=== PATIENT | female | born 1945 | race Caucasian/White ===

== ENCOUNTER → 2017-05-23 11:36 | Outpatient (CLI) | payer MEDICARE, OTHER ==
[~2017-05-23 11:36] MED LIST: FLAGYL500 MG PO; PEPCID20 MG PO; PROTONIX40 MG PO
== END | disposition home or self-care (01) ==
LOC: D.LAB 05-22 10:00
DX: R10.9 Unspecified abdominal pain (principal); K83.8 Other specified diseases of biliary tract; K86.9 Disease of pancreas, unspecified

== ENCOUNTER 2017-05-26 12:02 | Day surgery (SDC) | payer MEDICARE, OTHER ==
[2017-05-23 12:20] LABS: ALBUMIN 3.6 g/dL (3.4-5.0); ALKALINE PHOSPHATASE 96 U/L (46-116); ALT (SGPT) 22 U/L (10-68); BILIRUBIN - TOTAL 0.35 mg/dL (0.2-1.3); CALC OSMOLALITY 280 mosm/kg (275-300); CALCIUM 8.6 mg/dL (8.5-10.1); CARBON DIOXIDE 27.9 mmol/L (21.0-32.0); CHLORIDE - SERUM 106 mmol/L (98-107); CREATININE - SERUM 0.7 mg/dL (0.6-1.3); GLUCOSE 81 mg/dL (74-106); LIPASE 118 U/L (73-393); POTASSIUM - SERUM 3.5 mmol/L (3.5-5.1); SODIUM 142 mmol/L (136-145); UREA NITROGEN 10 mg/dL (7-18); eGFR NON AFRICAN AMERICAN 87 mL/min (90-120)
[2017-05-26 12:31] LABS: HEMOGLOBIN 14.1 g/dL (12-16); MCHC 33.6 g/dL (31.0-37.0); MCV 92.3 fL (80.0-100.0); MEAN PLATELET VOLUME 9.7 fL (7.4-10.4); RBC 4.55 10x6/uL (4.00-5.40); RDW 12.6 % (11.5-14.5); WBC 2.1 10x3/uL (4.8-10.8)
[2017-05-26] MEDS ORDERED: PROTONIX40 MG PO (12:40)
[2017-05-26] MEDS ORDERED: FLAGYL500 MG PO (12:40)
[2017-05-26] MEDS ORDERED: PEPCID20 MG PO (12:41)
[2017-05-26 12:50] VITALS: BMI 20.8
[2017-05-26 13:01] LABS: INR 1.07 (0.85-1.17); PROTIME 13.7 SECONDS (11.6-15.0)
--- NOTE | 2017-05-26 16:03 | NUR ---
1515-2 MINUTE 2 SECOND FLUROSCOPY TIME. 18CC CONTRAST USED.
== END 2017-05-26 18:15 | disposition home or self-care (01) ==
LOC: D.OPS 12:02
PROVIDERS: Anesthesiology; Internal Medicine Gastroenterology
DX: R10.32 Left lower quadrant pain (principal); R74.8 Abnormal levels of other serum enzymes; R93.2 Abnormal findings on diagnostic imaging of liver and biliary tract; F17.200 Nicotine dependence, unspecified, uncomplicated; K21.9 Gastro-esophageal reflux disease without esophagitis; K76.0 Fatty (change of) liver, not elsewhere classified; Z01.812 Encounter for preprocedural laboratory examination

== ENCOUNTER → 2017-09-12 11:04 | Outpatient (CLI) | payer MEDICARE, OTHER ==
[2017-09-12 11:39] LABS: ALBUMIN 3.8 g/dL (3.4-5.0); BILIRUBIN - DIRECT 0.07 mg/dL (0.00-0.30); BILIRUBIN - INDIRECT 0.23 mg/dL (0.00-1.00); BILIRUBIN - TOTAL 0.3 mg/dL (0.2-1.3); PROTEIN - SERUM 7.4 g/dL (6.4-8.2)
== END | disposition home or self-care (01) ==
LOC: D.LAB 10:00
PROVIDERS: Internal Medicine Gastroenterology
DX: R79.89 Other specified abnormal findings of blood chemistry (principal)

== ENCOUNTER → 2018-03-12 10:06 | Outpatient (CLI) | payer MEDICARE, OTHER ==
[2018-03-12 11:12] LABS: ALBUMIN 3.7 g/dL (3.4-5.0); BILIRUBIN - INDIRECT 0.26 mg/dL (0.00-1.00); BILIRUBIN - TOTAL 0.31 mg/dL (0.2-1.3); PROTEIN - SERUM 7.7 g/dL (6.4-8.2)
[2018-03-12 11:17] LABS: BILIRUBIN - DIRECT 0.05 mg/dL (0.00-0.30)
== END | disposition home or self-care (01) ==
LOC: D.LAB 10:06
PROVIDERS: Internal Medicine Gastroenterology
DX: R79.89 Other specified abnormal findings of blood chemistry (principal); L91.8 Other hypertrophic disorders of the skin